=== PATIENT | female | born 1940 | race Caucasian/White ===

== ENCOUNTER 2017-09-30 11:16 | Emergency (ER) | payer MEDICARE, OTHER ==
--- NOTE | 2017-09-30 11:51 | EDM.PDOC ---
ED HPI GENERAL MEDICAL PROBLEM - General Chief Complaint: Cardiovascular Problem Stated Complaint: HEART PROBLEMS Time Seen by Provider: 09/30/17 11:30 Source of Information: Reports: Patient, Family History Limitations: Reports: No Limitations - History of Present Illness INITIAL COMMENTS - FREE TEXT/NARRATIVE: 76-year-old female who has a chronic recurring arrhythmia that she usually can resolve with vagal maneuvers. She has had 2 ER visits in the last 3 years but she converted both times spontaneously prior to having cardioversion. She's had extensive workup for this and she is otherwise healthy. This morning she developed tachycardia and slight dizziness which is typical, and she could not convert with her usual vagal maneuvers so came in to be seen. She appears to be in a 2-1 atrial flutter at a rate of 145-148. Onset: Sudden Duration: Hour(s): (Within the last few hours) Associated Symptoms: Reports: Diaphoresis, Other (Slight chest pressure and diaphoresis) - Related Data Allergies Allergy/AdvReac Type Severity Reaction Status Date / Time No Known Allergies Allergy Verified 12/26/16 13:13 Home Meds: Home Meds Estrogens, Conjugated [Premarin Vaginal Crm] 09/30/17 [History] Hydrochlorothiazide [Microzide] 09/30/17 [History] Past Medical History HEENT History: Reports: Cataract Cardiovascular History: Reports: Heart Murmur, Hypertension Neurological History: Reports: MS - Past Surgical History HEENT Surgical History: Reports: Tonsillectomy GI Surgical History: Reports: Cholecystectomy, Colonoscopy Female Surgical History: Reports: Hysterectomy Social & Family History - Tobacco Use Smoking Status *Q: Never Smoker ED ROS GENERAL - Review of Systems Review Of Systems: See Below Constitutional: Denies: Fever, Chills Respiratory: Reports: Shortness of Breath GI/Abdominal: Reports: Nausea. Denies: Vomiting : Reports: No Symptoms Musculoskeletal: Reports: No Symptoms Skin: Reports: Diaphoresis Neurological: Reports: Dizziness ED EXAM, GENERAL - Physical Exam Exam: See Below Exam Limited By: No Limitations General Appearance: Alert, No Apparent Distress Respiratory/Chest: No Respiratory Distress, Lungs Clear Cardiovascular: Regular Rate, Rhythm, Tachycardia GI/Abdominal: Non-Tender Extremities: No: Pedal Edema Skin Exam: Warm, Dry Course - Vital Signs Last Recorded V/S: Last Vital Signs Temp 95.8 F 09/30/17 11:40 Pulse 145 H 09/30/17 11:40 Resp 13 09/30/17 11:40 BP 175/115 H 09/30/17 11:40 Pulse Ox 97 09/30/17 11:40 - Re-Assessments/Exams Free Text/Narrative Re-Assessment/Exam: 09/30/17 11:49 engine monitor shows a regular narrow complex tachycardia, likely 2:1 flutter. After brief exam carotid body massage was attempted and she almost immediately converted into a normal sinus rhythm and symptoms resolved. No further treatment or workup needed. Departure - Departure Time of Disposition: 12:02 Disposition: Home, Self-Care 01 Condition: Good Clinical Impression: Tachycardia, paroxysmal Instructions: Supraventricular Tachycardia, Adult, [id number] Referrals: PCP,None [Primary Care Provider] - Forms: ED Department Discharge Care Plan Goals: Continue your current activity and medications, return if symptoms recur and are persistent.
== END 2017-09-30 12:02 | disposition home or self-care (01) ==
LOC: JP.ED 11:16
DX: I47.9 Paroxysmal tachycardia, unspecified (principal); I10 Essential (primary) hypertension
CPT/HCPCS: 99285

== ENCOUNTER 2019-03-20 18:15 | Emergency (ER) | payer MEDICARE, OTHER ==
[2019-03-20] MEDS ORDERED: Metoprolol Tartrate 50 MG Tab PO ONE (18:33)
[2019-03-20] MEDS: Metoprolol Tartrate 5 MG/5 ML SDV IVPUSH ONE ×3 (18:49→19:32)
--- NOTE | 2019-03-20 19:31 | EDM.PDOC ---
ED HPI GENERAL MEDICAL PROBLEM - General Chief Complaint: Cardiovascular Problem Stated Complaint: MEDICAL VIA NORTH Time Seen by Provider: 03/20/19 18:20 Source of Information: Reports: Patient, EMS History Limitations: Reports: No Limitations - History of Present Illness INITIAL COMMENTS - FREE TEXT/NARRATIVE: 78-year-old female who underwent an ablation 7 days ago for atrial fibrillation , had been doing well but today was working in her driveway removing some snow and felt short of breath, slight chest pressure and palpitations. She has had intermittent palpitations for the last 2 hours, chest pressure with the palpitations, and a sensation of shortness of breath. EKG done by EMS showed sinus rhythm, mild tachycardia. Apparently the procedure went well. She has no other coronary artery disease which has been evaluated, she has had negative stress tests and angiograms. She decreased her metoprolol from 50 mg twice daily to 25 mg twice daily after the procedure. Denies fevers or chills. Onset: Sudden (Symptoms started fairly suddenly about 2 hours ago) Location: Reports: Chest (Mild pressure with palpitations) Associated Symptoms: Reports: Chest Pain, Shortness of Breath. Denies: Confusion, Cough, Fever/Chills, Headaches, Malaise, Nausea/Vomiting, Weakness - Related Data Allergies Allergy/AdvReac Type Severity Reaction Status Date / Time No Known Allergies Allergy Verified 03/20/19 18:52 Home Meds: Home Meds Aspirin [Halfprin] 81 mg PO DAILY 01/03/19 [History] Cholecalciferol (Vitamin D3) [Vitamin D] 5,000 unit PO DAILY 01/03/19 [History] Metoprolol Tartrate [Lopressor] 25 mg PO BID 01/03/19 [History] Propylene Glycol [Lubricant Eye Drop] 1 applic EYEBOTH ASDIRECTED 01/03/19 [ History] hydroCHLOROthiazide [Hydrochlorothiazide] 25 mg PO DAILY 01/03/19 [History] Past Medical History HEENT History: Reports: Cataract Cardiovascular History: Reports: Afib, Heart Murmur, Hypertension Neurological History: Reports: MS - Past Surgical History HEENT Surgical History: Reports: Tonsillectomy Cardiovascular Surgical History: Reports: Cardiac Ablation, Percutaneous Transluminal Angioplasty GI Surgical History: Reports: Cholecystectomy, Colonoscopy Female Surgical History: Reports: Hysterectomy Social & Family History - Tobacco Use Smoking Status *Q: Former Smoker Used Tobacco, but Quit: Yes Month/Year Tobacco Last Used: 30 years ago - Caffeine Use Caffeine Use: Reports: None - Recreational Drug Use Recreational Drug Use: No ED ROS GENERAL - Review of Systems Review Of Systems: See Below Constitutional: Denies: Fever, Chills HEENT: Reports: No Symptoms Respiratory: Reports: Shortness of Breath. Denies: Cough Cardiovascular: Reports: Chest Pain (Mild pressure when she has palpitations), Palpitations ED EXAM, GENERAL - Physical Exam Exam: See Below Exam Limited By: No Limitations General Appearance: Alert, Anxious Eye Exam: Bilateral Eye: Normal Inspection Head: Atraumatic Respiratory/Chest: No Respiratory Distress, Lungs Clear Cardiovascular: Tachycardia, Extra Beats, Irregularly Irregular GI/Abdominal: Soft, Non-Tender Neurological: Alert, Oriented Psychiatric: Normal Affect, Anxious Skin Exam: Warm, Dry Course - Vital Signs Last Recorded V/S: Last Vital Signs Temp 98.3 F 03/20/19 18:20 Pulse 124 H 03/20/19 19:19 Resp 17 03/20/19 19:09 BP 141/115 H 03/20/19 19:19 Pulse Ox 93 L 03/20/19 19:09 - Orders/Labs/Meds Orders: Active Orders 24 hr Category Date Time Status Chest 2V [CR] Routine Exams 03/20/19 19:40 Taken Meds: Medications Discontinued Medications Generic Name Dose Route Start Last Admin Trade Name Sanford PRN Reason Stop Dose Admin Metoprolol Tartrate 5 mg 03/20/19 18:32 03/20/19 19:32 Lopressor IVPUSH 03/20/19 18:33 Not Given ONETIME ONE Metoprolol Tartrate 50 mg 03/20/19 18:33 03/20/19 19:19 Lopressor PO 03/20/19 18:34 50 mg ONETIME ONE Administration - Re-Assessments/Exams Free Text/Narrative Re-Assessment/Exam: 03/20/19 19:38 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 She has not received her evening dose of metoprolol yet. An IV was started, plan was to give 5 mg of IV metoprolol and 50 mg of oral metoprolol. However prior to the 5 mg IV dose, the patient calm down significantly, blood pressure moderated and she remained in a sinus rhythm for over 10 minutes. She was given 50 mg of oral metoprolol and observed for another 20 minutes. Bedside ultrasound revealed no pericardial effusion. She was sent back for two-view chest x-ray. She was asymptomatic for over 30 minutes. 03/20/19 20:03 2 view chest x-ray showed several bilateral small nodular densities, unknown if chronic or not but there are no previous chest x-rays to compare. She has a follow-up on Sunday with her primary provider, she would discuss any further studies at that time. Increase metoprolol to 50 mg twice daily. Departure - Departure Time of Disposition: 20:10 Disposition: Home, Self-Care 01 Clinical Impression: Palpitations Atrial flutter Qualifiers: Atrial flutter type: typical Qualified Code(s): I48.3 - Typical atrial flutter Instructions: Atrial Flutter Referrals: Steven Harper NP [Primary Care Provider] - Forms: ED Department Discharge Care Plan Goals: Increase your metoprolol to 50 mg twice daily and recheck on Sunday as planned to follow-up with your heart rhythm and chest x-ray. Return anytime if worsening such as recurring symptoms that are persistent or difficulty breathing. Sepsis Event Note - Evaluation Sepsis Screening Result: No Definite Risk - Focused Exam Vital Signs: Vital Signs Temp Pulse Pulse Resp BP BP Pulse Ox 03/20/19 19:19 124 H 141/115 H 03/20/19 19:09 78 17 158/88 H 93 L 03/20/19 18:50 85 18 152/87 H 93 L 03/20/19 18:29 124 H 20 141/115 H 99 03/20/19 18:20 98.3 F 103 H 18 178/114 H 98 Date Exam was Performed: 03/20/19 Time Exam was Performed: 22:07 - My Orders Last 24 Hours: My Active Orders 03/20/19 19:40 Chest 2V [CR] Routine - Assessment/Plan Last 24 Hours: My Active Orders 03/20/19 19:40 Chest 2V [CR] Routine
--- NOTE | 2019-03-21 11:28 | CR ---
CHEST: 2 view CLINICAL HISTORY:Dyspnea COMPARISON:None FINDINGS: Heart size and pulmonary vascularity are normal. There are atherosclerotic changes in the aorta.. Lungs are hyperaerated. There is some vague nodularity in the lingula. There are some nodular densities in the lower lobes bilaterally. Impression: Emphysematous changes Scattered nodularity. Some of this appears to be secondary to previous granulomatous exposure. There is some vague nodularity in the lingula. This could represent infiltrate. Prior images would be helpful for determining chronology of these nodules. If they can be made available, an addendum report will be issued. If no prior chest chest images are available, noncontrast CT chest should be considered on a nonemergent basis
== END 2019-03-20 20:10 | disposition home or self-care (01) ==
LOC: JP.ED 18:15
DX: I48.3 Typical atrial flutter (principal); I48.91 Unspecified atrial fibrillation; I10 Essential (primary) hypertension; Z79.82 Long term (current) use of aspirin; Z79.899 Other long term (current) drug therapy; Z87.891 Personal history of nicotine dependence
CPT/HCPCS: 71046; 99285; A9270; 99284; J3490

== ENCOUNTER 2019-12-08 23:42 | Emergency (ER) | payer MEDICARE, OTHER ==
[2019-12-08] MEDS ORDERED: Lidocaine/Epineph/Tetracaine 3 ML Syringe TOP ONE (23:53)
--- NOTE | 2019-12-09 | EDM.PDOC ---
ED HPI GENERAL MEDICAL PROBLEM - General Chief Complaint: ENT Problem Stated Complaint: MEDICAL VIA NORHT Time Seen by Provider: 12/08/19 23:45 Source of Information: Reports: Patient, Old Records History Limitations: Reports: No Limitations - History of Present Illness INITIAL COMMENTS - FREE TEXT/NARRATIVE: 79 yo female here with L sided nose bleed. Bled a bit earlier today, then this evening bled more heavily. Is on a baby aspirin daily. Thinks her BP has been under good control. Denies injury. No pHx of recurrent nose bleeds. Is not sure if more of her bleeding was anterior or posterior. Here via EMS. 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) (EMS put packing in nares) - Related Data Allergies Allergy/AdvReac Type Severity Reaction Status Date / Time No Known Allergies Allergy Verified 12/08/19 23:46 Home Meds: Home Meds Aspirin [Halfprin] 81 mg PO DAILY 01/03/19 [History] Cholecalciferol (Vitamin D3) [Vitamin D] 5,000 unit PO DAILY 01/03/19 [History] Metoprolol Tartrate [Lopressor] 50 mg PO BID 01/03/19 [History] Propylene Glycol [Lubricant Eye Drop] 1 applic EYEBOTH ASDIRECTED 01/03/19 [History] hydroCHLOROthiazide [Hydrochlorothiazide] 25 mg PO DAILY 01/03/19 [History] Past Medical History HEENT History: Reports: Cataract Cardiovascular History: Reports: Afib, Heart Murmur, Hypertension Neurological History: Reports: MS - Past Surgical History HEENT Surgical History: Reports: Tonsillectomy Cardiovascular Surgical History: Reports: Cardiac Ablation, Percutaneous Transluminal Angioplasty GI Surgical History: Reports: Cholecystectomy, Colonoscopy Female Surgical History: Reports: Hysterectomy Social & Family History - Tobacco Use Tobacco Use Status *Q: Never Tobacco User - Caffeine Use Caffeine Use: Reports: None - Alcohol Use Days Per Week of Alcohol Use: 7 Number of Drinks Per Day: 2 Total Drinks Per Week: 14 ED ROS ENT - Review of Systems Review Of Systems: See Below Constitutional: Reports: No Symptoms HEENT: Reports: Nosebleed (L nares) Cardiovascular: Denies: Lightheadedness Skin: Denies: Bruising Neurological: Reports: No Symptoms. Denies: Headache ED EXAM, ENT - Physical Exam Exam: See Below Exam Limited By: No Limitations General Appearance: Alert, WD/WN, No Apparent Distress Eye Exam: Bilateral Eye: Normal Inspection Ears: Normal External Exam, Normal Canal, Hearing Loss (mild) Nose: Dried Blood (L nares. No active bleeding. ). No: Active Bleeding Mouth/Throat: Normal Inspection, Normal Lips, Normal Oropharynx Head: Atraumatic, Normocephalic Neck: Normal Inspection Respiratory/Chest: No Respiratory Distress, Lungs Clear, Normal Breath Sounds, No Accessory Muscle Use Cardiovascular: Regular Rate, Rhythm, No Edema Extremities: Normal Inspection Neurological: Alert, Oriented, CN II-XII Intact, Normal Cognition, No Motor/Sensory Deficits Psychiatric: Normal Affect, Normal Mood Skin: Warm, Dry, Intact, Normal Color, No Rash. No: Ecchymosis ED ENT PROCEDURES - Epistaxis Procedure Indication: Epistaxis, Controlled Recent anticoagulants/antiplatlets: Yes (aspirin) Uncontrolled HTN: Yes Recent septal/nasal surgery: No Site of bleeding: Left Nare, Anterior (?, not certain initially) Clearing of clots: Other (no clots present) Ice pack to area: No Chemical cautery: Silver Nitrate Topical Local anesthesia - Lidocaine (Xylocaine): Other (cotton ball soaked in lido/epi/tetracaine gel) Complications: No Course - Vital Signs Last Recorded V/S: Last Vital Signs Temp 36.3 C 12/08/19 23:50 Pulse 81 12/08/19 23:50 Resp 20 12/08/19 23:50 BP 173/94 H 12/08/19 23:50 Pulse Ox 95 12/08/19 23:50 - Orders/Labs/Meds Meds: Medications Discontinued Medications Generic Name Dose Route Start Last Admin Trade Name Freq PRN Reason Stop Dose Admin Silver Nitrate 1 each 12/09/19 00:40 Silver Nitrate TOP 12/09/19 00:41 ONETIME ONE Departure - Departure Time of Disposition: 01:01 Disposition: Home, Self-Care 01 Condition: Good Clinical Impression: Epistaxis - Discharge Information *PRESCRIPTION DRUG MONITORING PROGRAM REVIEWED*: No *COPY OF PRESCRIPTION DRUG MONITORING REPORT IN PATIENT PARVIZ: No Instructions: Nosebleed, [id number] Referrals: Steven Harper NP [Primary Care Provider] - Forms: ED Department Discharge Additional Instructions: Apply Vaseline or Bacitracin to your nostril several times daily. Keep your head above your heart as much as possible for the next couple of days. Hold your aspirin for the next week. Consider use of a humidifier in your bedroom. Its especially important to keep your BP down until your nose fully heals. Return as needed. If your nose starts bleeding keep your head high and squeeze your nostrils together for up to 20 minutes. Return if this doesn't control the bleeding. Sepsis Event Note (ED) - Evaluation Sepsis Screening Result: No Definite Risk - Focused Exam Vital Signs: Vital Signs Temp Pulse Resp BP Pulse Ox 12/08/19 23:50 36.3 C 81 20 173/94 H 95 12/08/19 23:49 36.3 C 81 20 173/94 H 95
[2019-12-09] MEDS ORDERED: Silver Nitrate Applicator Each TOP ONE (00:40)
[2019-12-09] MEDS ORDERED: Bacitracin Oint 1 GM U/D Packet TOP ONE (01:08)
== END 2019-12-09 01:25 | disposition home or self-care (01) ==
LOC: JP.ED 23:42
DX: R04.0 Epistaxis (principal); I10 Essential (primary) hypertension; I48.91 Unspecified atrial fibrillation; Z90.49 Acquired absence of other specified parts of digestive tract; Z90.710 Acquired absence of both cervix and uterus; Z79.82 Long term (current) use of aspirin; Z79.899 Other long term (current) drug therapy
CPT/HCPCS: 30901; 99284; A9270; 99282

== ENCOUNTER 2020-03-30 22:42 | Emergency (ER) | payer MEDICARE, OTHER ==
[2020-03-30] MEDS ORDERED: Cyclobenzaprine 10 MG Tab PO ONE (23:10)
[2020-03-30] MEDS ORDERED: Acetaminophen 325 MG Tab PO ONE (23:10)
--- NOTE | 2020-03-30 23:12 | EDM.PDOC ---
ED HPI GENERAL MEDICAL PROBLEM - General Chief Complaint: Cardiovascular Problem Stated Complaint: HIGH BP,NECK PAIN Time Seen by Provider: 03/30/20 23:07 Source of Information: Reports: Patient, RN Notes Reviewed History Limitations: Reports: No Limitations - History of Present Illness INITIAL COMMENTS - FREE TEXT/NARRATIVE: 79-year-old female presents emergency department day complaint of high blood pressure and neck pain, she states she has been doing a lot of computer work lately she has felt some knots in the back of her neck she noticed her pain was up in her neck today she checked her blood pressure was around 200 systolic., 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, 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 Middle Posterior Neck Pain Score (Numeric/FACES): 8 - Related Data Allergies Allergy/AdvReac Type Severity Reaction Status Date / Time No Known Allergies Allergy Verified 03/30/20 22:56 Home Meds: Home Meds Aspirin [Halfprin] 81 mg PO DAILY 01/03/19 [History] Cholecalciferol (Vitamin D3) [Vitamin D] 5,000 unit PO DAILY 01/03/19 [History] Metoprolol Tartrate [Lopressor] 50 mg PO BID 01/03/19 [History] Propylene Glycol [Lubricant Eye Drop] 1 applic EYEBOTH ASDIRECTED 01/03/19 [History] hydroCHLOROthiazide [Hydrochlorothiazide] 25 mg PO DAILY 01/03/19 [History] Calcium Carb/Vitamin D3/Vit K1 [Viactiv 650 mg-12.5 Mcg Chew] 1 tab PO DAILY 03/30/20 [History] Past Medical History HEENT History: Reports: Cataract Cardiovascular History: Reports: Afib, Heart Murmur, Hypertension Gastrointestinal History: Reports: Other (See Below) Other Gastrointestinal History: diverticulitis 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: Dysfunctional Uterine Bleeding Musculoskeletal History: Reports: Arthritis Neurological History: Reports: MS Hematologic History: Reports: Anticoagulation Therapy Oncologic (Cancer) History: Reports: Squamous Cell Carcinoma - Infectious Disease History Infectious Disease History: Reports: Chicken Pox, Hepatitis C, Measles, Mumps - Past Surgical History HEENT Surgical History: Reports: Tonsillectomy Cardiovascular Surgical History: Reports: Cardiac Ablation, Percutaneous Transluminal Angioplasty GI Surgical History: Reports: Cholecystectomy, Colonoscopy Female Surgical History: Reports: Hysterectomy Social & Family History - Tobacco Use Tobacco Use Status *Q: Never Tobacco User - Caffeine Use Caffeine Use: Reports: None - Alcohol Use Days Per Week of Alcohol Use: 7 Number of Drinks Per Day: 1 Total Drinks Per Week: 7 Date of Last Drink: 03/30/20 - Recreational Drug Use Recreational Drug Use: No ED ROS GENERAL - Review of Systems Review Of Systems: See Below Constitutional: Reports: No Symptoms. Denies: Fever, Chills HEENT: Reports: No Symptoms Respiratory: Reports: No Symptoms Cardiovascular: Reports: Blood Pressure Problem GI/Abdominal: Reports: No Symptoms Musculoskeletal: Reports: Neck Pain Skin: Reports: No Symptoms Neurological: Reports: No Symptoms ED EXAM, GENERAL - Physical Exam Exam: See Below Exam Limited By: No Limitations General Appearance: Alert, WD/WN, Anxious Neck: Normal Inspection, Supple, Limited Range of Motion, Tender Lateral. No: Lymphadenopathy (R), Lymphadenopathy (L), Tender Midline Respiratory/Chest: No Respiratory Distress, Lungs Clear, Normal Breath Sounds, No Accessory Muscle Use, Chest Non-Tender Cardiovascular: Regular Rate, Rhythm, No Murmur Course - Vital Signs Last Recorded V/S: Last Vital Signs Temp 97.7 F 03/30/20 22:52 Pulse 92 03/30/20 22:52 Resp 22 H 03/30/20 22:52 BP 163/88 H 03/30/20 23:07 Pulse Ox 95 03/30/20 22:52 - Orders/Labs/Meds Meds: Medications Discontinued Medications Generic Name Dose Route Start Last Admin Trade Name Sanford PRN Reason Stop Dose Admin Acetaminophen 650 mg 03/30/20 23:10 03/30/20 23:16 Tylenol PO 03/30/20 23:11 650 mg NOW ONE Administration Cyclobenzaprine HCl 10 mg 03/30/20 23:10 03/30/20 23:16 Flexeril PO 03/30/20 23:11 10 mg ONETIME ONE Administration Departure - Departure Time of Disposition: 00:07 Disposition: Home, Self-Care 01 Condition: Fair Clinical Impression: Neck muscle strain Qualifiers: Encounter type: initial encounter Qualified Code(s): S16.1XXA - Strain of muscle, fascia and tendon at neck level, initial encounter Instructions: Muscle Strain, [id number] Referrals: Steven Harper PROSTHODONTIST/OWNER [Primary Care Provider] - Forms: ED Department Discharge Additional Instructions: Continue to use ibuprofen or Tylenol as needed for pain control, try the Flexeril as needed for muscle relaxant, please followup with your primary care provider in 3-5 days if not better, please call return to the emergency department with worsening of symptoms. Sepsis Event Note (ED) - Evaluation Sepsis Screening Result: No Definite Risk - Focused Exam Vital Signs: Vital Signs Temp Pulse Resp BP Pulse Ox 03/30/20 23:07 163/88 H 03/30/20 22:52 97.7 F 92 22 H 165/130 H 95 - Assessment/Plan Plan: Assessment Acuity = acute Site and laterality = neck strain Etiology = secondary to repetitive motion injury Manifestations = none Location of injury = Home Lab values = none Plan Good improvement combination Tylenol Flexeril discharge home with Flexeril 10 mg 1 tab p.o. 3 times daily as needed total #15 follow-up primary care 3 to 5 days if not better This note was dictated using [employer] voice recognition software please call with any questions on syntax or grammar.
== END 2020-03-31 00:16 | disposition home or self-care (01) ==
LOC: JP.ED 22:42
DX: S16.1XXA Strain of muscle, fascia and tendon at neck level, initial encounter (principal); I48.91 Unspecified atrial fibrillation; I10 Essential (primary) hypertension; G35 Multiple sclerosis; M19.90 Unspecified osteoarthritis, unspecified site; Z79.82 Long term (current) use of aspirin; Z79.899 Other long term (current) drug therapy; X50.9XXA Other and unspecified overexertion or strenuous movements or postures, initial encounter; Y99.0 Civilian activity done for income or pay
CPT/HCPCS: 99283; A9270-GY

== ENCOUNTER 2021-11-02 21:46 | Emergency (ER) | payer MEDICARE, OTHER ==
[2021-11-02] MEDS ORDERED: Tranexamic Acid 1,000 MG/10 ML Vial ONE (22:23)
[2021-11-02] MEDS: Tranexamic Acid 1,000 MG/10 ML Vial TOP ONE (22:24)
[2021-11-02] MEDS ORDERED: Sodium Chloride 0.9% 10 ML Syringe FLUSH PRN (22:50)
[2021-11-02] MEDS: Sodium Chloride 0.9% 1,000 ML IV SCH (23:03)
== END 2021-11-03 00:51 | disposition home or self-care (01) ==
LOC: JP.ED 21:46
DX: R04.0 Epistaxis (principal); R55 Syncope and collapse; I10 Essential (primary) hypertension; Z79.82 Long term (current) use of aspirin; Z79.899 Other long term (current) drug therapy; Z90.49 Acquired absence of other specified parts of digestive tract; Z90.710 Acquired absence of both cervix and uterus
CPT/HCPCS: 30903; 36415; 85025; 96360; 99283; J7030

== ENCOUNTER 2021-11-05 13:01 | Emergency (ER) | payer MEDICARE, OTHER | END 2021-11-05 15:18 | disposition home or self-care (01) | LOC: JP.ED 13:01 | DX: R04.0 Epistaxis (principal); I10 Essential (primary) hypertension; I48.91 Unspecified atrial fibrillation; Z87.891 Personal history of nicotine dependence; Z79.82 Long term (current) use of aspirin | CPT/HCPCS: 99283 ==